=== PATIENT | male | born 1985 | race Caucasian/White ===

== ENCOUNTER 2017-03-02 20:58 | Emergency (ER) | payer OTHER ==
[~2017-03-02] VITALS: Ht 177.8 cm; Wt 79.0 kg
[2017-03-02] MEDS ORDERED: PERCOCET 5/31 TABLET PO (21:59)
[2017-03-02] MEDS ORDERED: ZOFRAN4 MG PO (21:59)
[2017-03-02 22:20] VITALS: BP 118/70
== END 2017-03-02 22:20 | disposition home or self-care (01) ==
LOC: EME 20:58
PROC: 2W3SX1Z Immobilization of Right Foot using Splint (ICD-10-PCS; principal; 2017-03-02)
DX: S92.192A Other fracture of left talus, initial encounter for closed fracture (principal); S93.401A Sprain of unspecified ligament of right ankle, initial encounter; V86.59XA Driver of other special all-terrain or other off-road motor vehicle injured in nontraffic accident, initial encounter
CPT/HCPCS: 73610; 99281; 99284